=== PATIENT | female | born 1990 | race Caucasian/White ===

== ENCOUNTER → 2020-06-24 | Outpatient (CLI) | payer SELFPAY | LOC: M LABSMTC 12:46 | PROVIDERS: ATTEND Pediatrics | DX: Z20.828 Contact with and (suspected) exposure to other viral communicable diseases (principal) ==

== ENCOUNTER → 2022-09-21 | Outpatient (REF) | payer OTHER | LOC: M SFHCWAGY 17:13 | PROVIDERS: ATTEND Nurse Practitioner Family | DX: Z12.4 Encounter for screening for malignant neoplasm of cervix (principal) | CPT/HCPCS: 87624; G0123 ==

== ENCOUNTER → 2022-11-23 | Outpatient (CLI) | payer OTHER | LOC: M WHC 12:55 | PROVIDERS: ATTEND Nurse Practitioner Family | DX: N63.10 Unspecified lump in the right breast, unspecified quadrant (principal); N63.20 Unspecified lump in the left breast, unspecified quadrant | CPT/HCPCS: 76641; 77066; G0279 ==

== ENCOUNTER → 2025-06-13 | Outpatient (REF) | payer OTHER | LOC: M SFHCWAGY 16:49 | PROVIDERS: ATTEND Nurse Practitioner Family | DX: N73.9 Female pelvic inflammatory disease, unspecified (principal) ==